=== PATIENT | female | born 1990 | race American Indian/Alaskan Native ===

== ENCOUNTER 2016-05-12 00:40 | Emergency (ER) | payer BC ==
--- NOTE | 2016-05-12 04:01 | Emergency Department Report ---
ED Shortness of Breath HPI - General Chief Complaint: Dyspnea/Respdistress Stated Complaint: CHEST PAIN Time Seen by Provider: 05/12/16 03:10 Source: patient Mode of arrival: Ambulatory Limitations: No Limitations - History of Present Illness Initial Comments: 26 y/o female complain of chest tightness for 30 minute on yesterday .pt denies any pain at present .pt state she has anxiety and asthma. Patient states she is currently out of her albuterol inhaler and will like a refill. Complaint: chest pain Onset/Timin -: days(s) Pain Scale: 2 Quality: aching Consistency: now resolved Improves With: nothing Worsens With: nothing Associated Symptoms: chest pain Treatments Prior to Arrival: none - Related Data Home Oxygen Therapy: No Previous Rx's Medication Instructions Recorded Last Taken Type Norgestimate-Ethinyl Estradiol 1 each PO DAILY #1 tablet 05/26/14 Unknown Rx [Ortho Tri-Cyclen Lo Tablet] ALBUTEROL Inhaler [ProAir HFA 2 puff IH QID PRN #1 inhalation 02/24/15 Unknown Rx Inhaler] Famotidine [Pepcid] 20 mg PO BID #60 tablet 02/24/15 Unknown Rx Ibuprofen [Motrin] 800 mg PO Q8HR PRN #45 tablet 02/24/15 Unknown Rx Ondansetron [Zofran Odt] 4 mg PO TID #9 tab.rapdis 02/24/15 Unknown Rx Ferrous Sulfate [Feosol 325 MG tab] 325 mg PO BID #60 tablet 11/07/15 Unknown Rx ALBUTEROL Inhaler [ProAir HFA 2 puff IH QID PRN #1 inhalation 05/12/16 Unknown Rx Inhaler] Allergies Allergy/AdvReac Type Severity Reaction Status Date / Time No Known Allergies Allergy Unverified 05/25/14 09:58 ED Review of Systems ROS: Stated complaint: CHEST PAIN Other details as noted in HPI Constitutional: denies: chills, fever Eyes: denies: eye pain, eye discharge, vision change ENT: denies: ear pain, throat pain Respiratory: denies: cough, shortness of breath, wheezing Cardiovascular: denies: chest pain, palpitations Endocrine: no symptoms reported Gastrointestinal: denies: abdominal pain, nausea, diarrhea Genitourinary: denies: urgency, dysuria, discharge Musculoskeletal: denies: back pain, joint swelling, arthralgia Skin: denies: rash, lesions Neurological: denies: headache, weakness, paresthesias Psychiatric: denies: anxiety, depression Hematological/Lymphatic: denies: easy bleeding, easy bruising ED Past Medical Hx - Past Medical History Previous Medical History?: Yes Hx Congestive Heart Failure: No Hx Diabetes: No Hx Asthma: Yes Hx COPD: No - Surgical History Past Surgical History?: Yes Additional Surgical History: c section x1 - Social History Smoking Status: Never Smoker Substance Use Type: None - Medications Home Medications: Home Medications Medication Instructions Recorded Confirmed Last Taken Type Norgestimate-Ethinyl Estradiol 1 each PO DAILY #1 tablet 05/26/14 Unknown Rx [Ortho Tri-Cyclen Lo Tablet] ALBUTEROL Inhaler [ProAir HFA 2 puff IH QID PRN #1 inhalation 02/24/15 Unknown Rx Inhaler] Famotidine [Pepcid] 20 mg PO BID #60 tablet 02/24/15 Unknown Rx Ibuprofen [Motrin] 800 mg PO Q8HR PRN #45 tablet 02/24/15 Unknown Rx Ondansetron [Zofran Odt] 4 mg PO TID #9 tab.rapdis 02/24/15 Unknown Rx Ferrous Sulfate [Feosol 325 MG tab] 325 mg PO BID #60 tablet 11/07/15 Unknown Rx ALBUTEROL Inhaler [ProAir HFA 2 puff IH QID PRN #1 inhalation 05/12/16 Unknown Rx Inhaler] ED Physical Exam - General Limitations: No Limitations General appearance: alert, in no apparent distress - Head Head exam: Present: atraumatic, normocephalic - Eye Eye exam: Present: normal appearance - ENT ENT exam: Present: mucous membranes moist - Neck Neck exam: Present: normal inspection - Respiratory Respiratory exam: Present: normal lung sounds bilaterally. Absent: respiratory distress, wheezes, rales, rhonchi - Cardiovascular Cardiovascular Exam: Present: regular rate, normal rhythm, normal heart sounds. Absent: bradycardia, tachycardia, irregular rhythm, systolic murmur, diastolic murmur, rubs, gallop - GI/Abdominal GI/Abdominal exam: Present: soft, normal bowel sounds - Extremities Exam Extremities exam: Present: normal inspection - Back Exam Back exam: Present: normal inspection - Neurological Exam Neurological exam: Present: alert, oriented X3 - Psychiatric Psychiatric exam: Present: normal affect, normal mood - Skin Skin exam: Present: warm, dry, intact, normal color. Absent: rash ED Course Vital Signs 05/12/16 01:26 Temperature 97.7 F Pulse Rate 63 Respiratory 18 Rate Blood Pressure 132/92 O2 Sat by Pulse 100 Oximetry ED Medical Decision Making - Medical Decision Making Asthma Patient had a EKG done for chest pain but refused to have lab work drawn. She states she need a refill for albuterol inhaler Critical care attestation.: If time is entered above; I have spent that time in minutes in the direct care of this critically ill patient, excluding procedure time. ED Disposition Clinical Impression: Asthma Qualifiers: Asthma severity: unspecified severity Asthma complication type: uncomplicated Qualified Code(s): J45.909 - Unspecified asthma, uncomplicated Disposition: DISCHARGED TO HOME OR SELFCARE Is pt being admited?: No Does the pt Need Aspirin: No Condition: Stable Instructions: Asthma (ED) Prescriptions: ALBUTEROL Inhaler [ProAir HFA Inhaler] 2 puff IH QID PRN #1 inhalation PRN Reason: Shortness Of Breath Referrals: PRIMARY CARE,MD [Primary Care Provider] - 3-[address] [facility] [Outside] - 3-5 Days Forms: Work/School Release Form(ED) Time of Disposition: 04:03
[2016-05-12 04:18] VITALS: BP 129/88
== END 2016-05-12 04:25 | disposition home or self-care (01) ==
LOC: ED 00:40
DX: J45.909 Unspecified asthma, uncomplicated (principal)
CPT/HCPCS: 93005; 93010; 99282

== ENCOUNTER 2016-06-11 00:54 | Emergency (ER) | payer BC ==
[2016-06-11 01:40] LABS: Basophils % (Auto) 0.3 % (0.0-1.8); Eosinophils % (Auto) 4.7 % (0.0-4.3); Hematocrit 36.5 % (30.3-42.9); Hemoglobin 11.8 gm/dl (10.1-14.3); Mean Corpuscular HGB Conc 32 % (30-34); Mean Corpuscular Hemoglobin 27 pg (28-32); Mean Corpuscular Volume 84 fl (79-97); Platelet Count 225 K/mm3 (140-440); Red Blood Count 4.35 M/mm3 (3.65-5.03); Red Cell Distribution Width 14.6 % (13.2-15.2); White Blood Count 7.9 K/mm3 (4.5-11.0)
[2016-06-11 02:36] LABS: Bilirubin,Urine NEG (Negative); Blood,Urine LG (Negative); Ketones,Urine NEG (Negative); Leukocyte Esterase,Urine NEG (Negative); Nitrite,Urine NEG (Negative); Urobilinogen,Urine < 2.0 mg/dL (<2.0)
[2016-06-11 02:38] LABS: RBC,Urine > 182.0 /HPF (0.0-6.0)
--- NOTE | 2016-06-11 11:15 | Emergency Department Report ---
HPI - General Chief Complaint: Abdominal Pain Time Seen by Provider: 06/11/16 10:20 - HPI HPI: Chief complaint: Vaginal bleeding HPI: Patient with a history of irregular periods states she's been having vaginal bleeding for the last 2 weeks. Patient states she is using approximately 6 pads a day. Patient has had dysfunctional uterine bleeding in the past requiring transfusion and came in to be checked and she started feeling lightheaded. Lower abdominal cramping pain Mode of arrival: private car Source: Patient Began: 2 weeks Duration: 2 weeks Context: See above Quality: Cramping Severity: 5 out of 10 Improved with: Nothing Worsened with: Nothing Associated signs and symptoms: See above ED Past Medical Hx - Past Medical History Previous Medical History?: Yes Hx Asthma: Yes - Surgical History Past Surgical History?: Yes Additional Surgical History: c section - Social History Smoking Status: Never Smoker - Medications Home Medications: Home Medications Medication Instructions Recorded Confirmed Last Taken Type Norgestimate-Ethinyl Estradiol 1 each PO DAILY #1 tablet 05/26/14 Unknown Rx [Ortho Tri-Cyclen Lo Tablet] ALBUTEROL Inhaler [ProAir HFA 2 puff IH QID PRN #1 inhalation 02/24/15 Unknown Rx Inhaler] Famotidine [Pepcid] 20 mg PO BID #60 tablet 02/24/15 Unknown Rx Ibuprofen [Motrin] 800 mg PO Q8HR PRN #45 tablet 02/24/15 Unknown Rx Ondansetron [Zofran Odt] 4 mg PO TID #9 tab.rapdis 02/24/15 Unknown Rx Ferrous Sulfate [Feosol 325 MG tab] 325 mg PO BID #60 tablet 11/07/15 Unknown Rx ALBUTEROL Inhaler [ProAir HFA 2 puff IH QID PRN #1 inhalation 05/12/16 Unknown Rx Inhaler] medroxyPROGESTERone ACETATE 10 mg PO QDAY #10 tablet 06/11/16 Unknown Rx [Provera] ED Review of Systems ROS: Stated complaint: VAGINAL BLEEDING/LIGHTHEADED Other details as noted in HPI ROS Constitutional: No fever ENT: No uri symptoms Cardiovascular: No chest pain Respiratory: No sob or cough GI: No nausea vomiting or diarrhea : No dysuria frequency or urgency, Skin: No rash Neuro: No focal weakness or numbness Psych: No depression Ted/lymph: No edema Physical Exam - Physical Exam Vital Signs: Vital Signs 06/11/16 06/11/16 01:00 06:51 Temperature 98.6 F 98.3 F Pulse Rate 74 61 Respiratory 16 Rate Blood Pressure 133/96 104/64 O2 Sat by Pulse 100 Oximetry Physical Exam: GENERAL: The patient is well-developed well-nourished . HEENT: Normocephalic. Atraumatic. Extraocular motions are intact. Patient has moist mucous membranes. NECK: Supple. No meningitic signs are noted. There is no adenopathy noted. CHEST/LUNGS: Clear to auscultation. There is no respiratory distress noted. HEART/CARDIOVASCULAR: Regular. There is no tachycardia. There is no gallop rub or murmur. ABDOMEN: Abdomen is soft, nontender. Patient has normal bowel sounds. There is no abdominal distention. : Moderate amount of menstrual bleeding. Minimal uterine tenderness and no cervical motion tenderness and no vaginal discharge SKIN: There is no rash. There is no edema. There is no diaphoresis. NEURO: The patient is awake, alert, and oriented. The patient is cooperative. The patient has no focal neurologic deficits. The patient has normal speech. MUSCULOSKELETAL: There is no tenderness or deformity. There is no limitation range of motion. There is no evidence of acute injury. ED Course Vital Signs 06/11/16 06/11/16 01:00 06:51 Temperature 98.6 F 98.3 F Pulse Rate 74 61 Respiratory 16 Rate Blood Pressure 133/96 104/64 O2 Sat by Pulse 100 Oximetry ED Medical Decision Making - Lab Data Result diagrams: 06/11/16 01:07 Laboratory Tests 06/11/16 02:08 Urine HCG, Qual Negative Critical care attestation.: If time is entered above; I have spent that time in minutes in the direct care of this critically ill patient, excluding procedure time. ED Disposition Clinical Impression: Dysfunctional uterine bleeding Disposition: DISCHARGED TO HOME OR SELFCARE Is pt being admited?: No Does the pt Need Aspirin: No Condition: Stable Instructions: Dysfunctional Uterine Bleeding (ED) Prescriptions: medroxyPROGESTERone ACETATE [Provera] 10 mg PO QDAY #10 tablet Referrals: RAFI CONTRERAS MD [Primary Care Provider] - 3-5 Days WILLIAM GARCIA MD [Staff Physician] - 7-10 days Time of Disposition: 11:10
[2016-06-11 11:30] VITALS: BP 120/78
== END 2016-06-11 11:30 | disposition home or self-care (01) ==
LOC: ED 00:54
DX: N93.8 Other specified abnormal uterine and vaginal bleeding (principal); J45.909 Unspecified asthma, uncomplicated; Z98.890 Other specified postprocedural states; Z79.899 Other long term (current) drug therapy
CPT/HCPCS: 36415; 81001; 81025; 85025; 99283

== ENCOUNTER 2016-10-30 21:02 | Emergency (ER) | payer BC ==
[2016-10-30 21:50] LABS: Basophils % (Auto) 0.7 % (0.0-1.8); Eosinophils % (Auto) 2.9 % (0.0-4.3); Hematocrit 34.1 % (30.3-42.9); Hemoglobin 10.8 gm/dl (10.1-14.3); Mean Corpuscular HGB Conc 32 % (30-34); Mean Corpuscular Volume 79 fl (79-97); Platelet Count 234 K/mm3 (140-440); Red Blood Count 4.34 M/mm3 (3.65-5.03); Red Cell Distribution Width 17.7 % (13.2-15.2); White Blood Count 10.2 K/mm3 (4.5-11.0)
[2016-10-30 21:51] LABS: Mean Corpuscular Hemoglobin 25 pg (28-32)
--- NOTE | 2016-10-31 02:02 | Emergency Department Report ---
ED Female HPI - General Chief complaint: Vaginal Bleeding Stated complaint: HEAVY BLEEDING AND BLOOD CLOTS Time Seen by Provider: 10/31/16 01:50 Source: patient Mode of arrival: Ambulatory Limitations: No Limitations - History of Present Illness Initial comments: 26-year-old female presents to the emergency department complaining of pelvic pain and vaginal bleeding. Patient states she has not had a menstrual period in 6 months. 2-1/2 weeks ago she began having pelvic cramping and vaginal bleeding. She reports some clots. Bleeding is worse during the morning time and slightly improves during the day. She reports occasional headaches. She denies chest pain, difficulty breathing, or lightheadedness. There are no other complaints. MD Complaint: vaginal bleeding, pelvic pain -: Gradual, week(s) (2.5) Location: suprapubic Radiation: non-radiating Severity: mild Severity scale (0 -10): 3 Quality: cramping Consistency: intermittent Improves with: none Worsens with: none Are you Now?: No Associated Symptoms: vaginal bleeding, headaches - Related Data Previous Rx's Medication Instructions Recorded Last Taken Type Norgestimate-Ethinyl Estradiol 1 each PO DAILY #1 tablet 05/26/14 Unknown Rx [Ortho Tri-Cyclen Lo Tablet] ALBUTEROL Inhaler [ProAir HFA 2 puff IH QID PRN #1 inhalation 02/24/15 Unknown Rx Inhaler] Famotidine [Pepcid] 20 mg PO BID #60 tablet 02/24/15 Unknown Rx Ibuprofen [Motrin] 800 mg PO Q8HR PRN #45 tablet 02/24/15 Unknown Rx Ondansetron [Zofran Odt] 4 mg PO TID #9 tab.rapdis 02/24/15 Unknown Rx Ferrous Sulfate [Feosol 325 MG tab] 325 mg PO BID #60 tablet 11/07/15 Unknown Rx ALBUTEROL Inhaler [ProAir HFA 2 puff IH QID PRN #1 inhalation 05/12/16 Unknown Rx Inhaler] medroxyPROGESTERone ACETATE 10 mg PO QDAY #10 tablet 10/31/16 Unknown Rx [Provera] Allergies Allergy/AdvReac Type Severity Reaction Status Date / Time No Known Allergies Allergy Unverified 05/25/14 09:58 ED Review of Systems ROS: Stated complaint: HEAVY BLEEDING AND BLOOD CLOTS Other details as noted in HPI Comment: All other systems reviewed and negative Gastrointestinal: abdominal pain Genitourinary: abnormal menses Neurological: headache ED Past Medical Hx - Past Medical History Previous Medical History?: Yes Hx Congestive Heart Failure: No Hx Diabetes: No Hx Asthma: Yes Hx COPD: No - Surgical History Past Surgical History?: Yes Additional Surgical History: c section - Family History Family history: no significant - Social History Smoking Status: Never Smoker Substance Use Type: None - Medications Home Medications: Home Medications Medication Instructions Recorded Confirmed Last Taken Type Norgestimate-Ethinyl Estradiol 1 each PO DAILY #1 tablet 05/26/14 Unknown Rx [Ortho Tri-Cyclen Lo Tablet] ALBUTEROL Inhaler [ProAir HFA 2 puff IH QID PRN #1 inhalation 02/24/15 Unknown Rx Inhaler] Famotidine [Pepcid] 20 mg PO BID #60 tablet 02/24/15 Unknown Rx Ibuprofen [Motrin] 800 mg PO Q8HR PRN #45 tablet 02/24/15 Unknown Rx Ondansetron [Zofran Odt] 4 mg PO TID #9 tab.rapdis 02/24/15 Unknown Rx Ferrous Sulfate [Feosol 325 MG tab] 325 mg PO BID #60 tablet 11/07/15 Unknown Rx ALBUTEROL Inhaler [ProAir HFA 2 puff IH QID PRN #1 inhalation 05/12/16 Unknown Rx Inhaler] medroxyPROGESTERone ACETATE 10 mg PO QDAY #10 tablet 10/31/16 Unknown Rx [Provera] ED Physical Exam - General Limitations: No Limitations General appearance: alert, in no apparent distress - Head Head exam: Present: atraumatic, normocephalic - Eye Eye exam: Present: normal appearance, PERRL, EOMI - ENT ENT exam: Present: normal exam, normal orophraynx, mucous membranes moist - Neck Neck exam: Present: normal inspection, full ROM. Absent: tenderness - Respiratory Respiratory exam: Present: normal lung sounds bilaterally. Absent: respiratory distress - Cardiovascular Cardiovascular Exam: Present: regular rate, normal rhythm, normal heart sounds - GI/Abdominal GI/Abdominal exam: Present: soft, tenderness (mild suprapubic tenderness to palpation), normal bowel sounds. Absent: distended, guarding, rebound - Extremities Exam Extremities exam: Present: normal inspection, full ROM. Absent: tenderness - Back Exam Back exam: Present: normal inspection, full ROM. Absent: tenderness - Neurological Exam Neurological exam: Present: alert, oriented X3. Absent: motor sensory deficit - Skin Skin exam: Present: warm, dry, intact ED Course Vital Signs 10/30/16 10/31/16 10/31/16 21:15 01:39 01:50 Temperature 98.2 F Pulse Rate 106 H 92 H Respiratory 20 18 18 Rate Blood Pressure 114/77 Blood Pressure 108/78 [Right] O2 Sat by Pulse 97 Oximetry ED Medical Decision Making - Lab Data Result diagrams: 10/30/16 21:27 - Radiology Data Radiology results: report reviewed Pelvic ultrasound reveals a left ovarian cyst. There are no other acute abnormalities. - Medical Decision Making Lab and imaging results reviewed and discussed with the patient. 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 - Differential Diagnosis abnormal uterine bleeding, fibroids, anemia Critical care attestation.: If time is entered above; I have spent that time in minutes in the direct care of this critically ill patient, excluding procedure time. ED Disposition Clinical Impression: Abnormal uterine bleeding Disposition: -01 TO HOME OR SELFCARE Is pt being admited?: No Condition: Stable Instructions: Menorrhagia (ED) Prescriptions: medroxyPROGESTERone ACETATE [Provera] 10 mg PO QDAY #10 tablet Referrals: SHEILA CHAVEZ MD [Staff Physician] - 3-5 Days Time of Disposition: 04:43
[2016-10-31 02:29] VITALS: BP 108/78
[2016-10-31 02:29] LABS: Bilirubin,Urine Negative (Negative); Ketones,Urine Negative (Negative)
[2016-10-31 02:30] LABS: Blood,Urine Large (Negative); Leukocyte Esterase,Urine Negative (Negative); Nitrite,Urine Negative (Negative)
--- NOTE | 2016-10-31 03:48 | Ultrasound Report ---
FINAL REPORT PROCEDURE: US PELVIS TRANSABDOMINAL TECHNIQUE: Real-time transabdominal sonography in multiple planes of the pelvis was performed with image documentation. This examination was performed without Doppler. Vascular abnormalities, including ovarian torsion, will not be detectable without Doppler evaluation. HISTORY: lower abd pain with vaginal bleeding COMPARISON: No prior studies are available for comparison. FINDINGS: UTERUS Size: 10.9 x 4.7 x 6.3 cm. Endometrial thickness: 11.7 mm. Orientation: anteverted. Cervix: Normal. Fibroids/masses: None. RIGHT Ovary: 3.7 x 2.3 x 1.9 cm. Appearance: Normal. LEFT Ovary: 4.6 x 2.6 x 2.7 cm. Appearance: There is cyst measuring 2.9 centimeters.. Pelvic fluid: None. Other: None. IMPRESSION: Left ovarian cyst. Otherwise unremarkable..
--- NOTE | 2016-10-31 03:48 | Ultrasound Report ---
FINAL REPORT PROCEDURE: US TRANSVAGINAL TECHNIQUE: Real-time transvaginal sonography in multiple planes of the pelvis was performed with image documentation. This examination was performed without Doppler. Vascular abnormalities, including ovarian torsion, will not be detectable without Doppler evaluation. CPT 63790 HISTORY: lower abd pain with vaginal bleeding COMPARISON: No prior studies are available for comparison. FINDINGS: UTERUS Size: 10.9 x 4.7 x 6.3 cm. Endometrial thickness: 11.7 mm. Orientation: anteverted. Cervix: Normal. Fibroids/masses: None. RIGHT Ovary: 3.7 x 2.3 x 1.9 cm. Appearance: Normal. LEFT Ovary: 4.6 x 2.6 x 2.7 cm. Appearance: There is cyst measuring 2.9 centimeters.. Pelvic fluid: None. Other: None. IMPRESSION: Left ovarian cyst. Otherwise unremarkable..
== END 2016-10-31 05:11 | disposition home or self-care (01) ==
LOC: ED 21:02
DX: N93.9 Abnormal uterine and vaginal bleeding, unspecified (principal); J45.909 Unspecified asthma, uncomplicated
CPT/HCPCS: 36415; 76830; 76856; 81001; 84702; 85025; 86850; 86900; 86901; 99284

== ENCOUNTER 2017-04-17 10:03 | Emergency (ER) | payer BC ==
[2017-04-17 12:38] LABS: Basophils % (Auto) 0.3 % (0.0-1.8); Eosinophils # (Auto) 0.4 K/mm3 (0.0-0.4); Eosinophils % (Auto) 5.5 % (0.0-4.3); Hemoglobin 10.9 gm/dl (10.1-14.3); Lymphocytes # (Auto) 2.6 K/mm3 (1.2-5.4); Lymphocytes % (Auto) 39.6 % (13.4-35.0); Mean Corpuscular HGB Conc 31 % (30-34); Mean Corpuscular Volume 76 fl (79-97); Monocytes # (Auto) 0.5 K/mm3 (0.0-0.8); Monocytes % (Auto) 7.7 % (0.0-7.3); Platelet Count 231 K/mm3 (140-440)
[2017-04-17 12:41] LABS: Mean Corpuscular Hemoglobin 24 pg (28-32); Red Cell Distribution Width 20.4 % (13.2-15.2)
[2017-04-17 13:44] LABS: Bilirubin,Urine NEG (Negative); Blood,Urine LG (Negative); Color,Urine Red (Yellow); Nitrite,Urine NEG (Negative); Urobilinogen,Urine < 2.0 mg/dL (<2.0)
[2017-04-17 13:46] LABS: RBC,Urine > 182.0 /HPF (0.0-6.0); WBC,Urine < 1.0 /HPF (0.0-6.0)
--- NOTE | 2017-04-18 04:37 | Emergency Department Report ---
ED Female HPI - General Chief complaint: Vaginal Bleeding Stated complaint: MENSTRAL CRAMPING Time Seen by Provider: 04/18/17 04:22 Source: patient Mode of arrival: Ambulatory Limitations: No Limitations - History of Present Illness Initial comments: 27 YO FEMALE WITH RECURRENT VAGINAL BLEEDING WHICH BEGAN 2.5 WEEKS AGO. SHE HAS HAD THIS PROBLEM FOR 3 YRS AND HAS RECEIVED BLOOD TRANSFUSIONS AND HAS NOT FOLLOW UP WITH A DOCTOR. SHE HAS HAD ULTRASOUNDS DONE AND BEEN ON OCP FOR THIS WITH EACH OCCURRENCE OF UTERINE BLEEDING. LAST us SHOWED OVARIAN CYST BUT REPEAT US AT [facility] WAS NEGATIVE FOR OVARIAN CYST. MD Complaint: vaginal bleeding -: Gradual, week(s) (2.5) Radiation: suprapubic Severity: mild Quality: cramping Consistency: other (SEE ABOVE) Improves with: none Worsens with: none Are you Now?: No Associated Symptoms: denies: vaginal discharge, nausea/vomiting, fever/chills, headaches, loss of appetite - Related Data Previous Rx's Medication Instructions Recorded Last Taken Type Norgestimate-Ethinyl Estradiol 1 each PO DAILY #1 tablet 05/26/14 Unknown Rx [Ortho Tri-Cyclen Lo Tablet] ALBUTEROL Inhaler [ProAir HFA 2 puff IH QID PRN #1 inhalation 02/24/15 Unknown Rx Inhaler] Famotidine [Pepcid] 20 mg PO BID #60 tablet 02/24/15 Unknown Rx Ibuprofen [Motrin] 800 mg PO Q8HR PRN #45 tablet 02/24/15 Unknown Rx Ondansetron [Zofran Odt] 4 mg PO TID #9 tab.rapdis 02/24/15 Unknown Rx Ferrous Sulfate [Feosol 325 MG tab] 325 mg PO BID #60 tablet 11/07/15 Unknown Rx ALBUTEROL Inhaler [ProAir HFA 2 puff IH QID PRN #1 inhalation 05/12/16 Unknown Rx Inhaler] Naproxen [Naprosyn] 500 mg PO BID #30 tablet 04/18/17 Unknown Rx medroxyPROGESTERone ACETATE 10 mg PO QDAY #10 tablet 04/18/17 Unknown Rx [Provera] Allergies Allergy/AdvReac Type Severity Reaction Status Date / Time No Known Allergies Allergy Verified 04/17/17 12:04 ED Review of Systems ROS: Stated complaint: MENSTRAL CRAMPING Other details as noted in HPI Constitutional: denies: chills, fever Eyes: denies: eye pain, eye discharge, vision change ENT: denies: ear pain, throat pain Respiratory: denies: cough, shortness of breath, wheezing Cardiovascular: denies: chest pain, palpitations Endocrine: no symptoms reported Gastrointestinal: abdominal pain (MILD CRAMPING). denies: nausea, vomiting, diarrhea Genitourinary: denies: urgency, dysuria, discharge Musculoskeletal: denies: back pain, joint swelling, arthralgia Skin: denies: rash, lesions Neurological: denies: headache, weakness, paresthesias Psychiatric: denies: anxiety, depression Hematological/Lymphatic: denies: easy bleeding, easy bruising ED Past Medical Hx - Past Medical History Previous Medical History?: Yes Hx Congestive Heart Failure: No Hx Diabetes: No Hx Asthma: Yes Hx COPD: No Additional medical history: Anemia from heavy menstral cycles, MENORRHAGIA - Surgical History Past Surgical History?: Yes Additional Surgical History: c section - Social History Smoking Status: Never Smoker Substance Use Type: None - Medications Home Medications: Home Medications Medication Instructions Recorded Confirmed Last Taken Type Norgestimate-Ethinyl Estradiol 1 each PO DAILY #1 tablet 05/26/14 Unknown Rx [Ortho Tri-Cyclen Lo Tablet] ALBUTEROL Inhaler [ProAir HFA 2 puff IH QID PRN #1 inhalation 02/24/15 Unknown Rx Inhaler] Famotidine [Pepcid] 20 mg PO BID #60 tablet 02/24/15 Unknown Rx Ibuprofen [Motrin] 800 mg PO Q8HR PRN #45 tablet 02/24/15 Unknown Rx Ondansetron [Zofran Odt] 4 mg PO TID #9 tab.rapdis 02/24/15 Unknown Rx Ferrous Sulfate [Feosol 325 MG tab] 325 mg PO BID #60 tablet 11/07/15 Unknown Rx ALBUTEROL Inhaler [ProAir HFA 2 puff IH QID PRN #1 inhalation 05/12/16 Unknown Rx Inhaler] Naproxen [Naprosyn] 500 mg PO BID #30 tablet 04/18/17 Unknown Rx medroxyPROGESTERone ACETATE 10 mg PO QDAY #10 tablet 04/18/17 Unknown Rx [Provera] ED Physical Exam - General Limitations: No Limitations General appearance: alert, in no apparent distress - Head Head exam: Present: atraumatic, normocephalic - Eye Eye exam: Present: normal appearance, EOMI - ENT ENT exam: Present: mucous membranes moist - Neck Neck exam: Present: normal inspection, full ROM - Respiratory Respiratory exam: Present: normal lung sounds bilaterally. Absent: respiratory distress - Cardiovascular Cardiovascular Exam: Present: regular rate, normal rhythm. Absent: systolic murmur, diastolic murmur, rubs, gallop - GI/Abdominal GI/Abdominal exam: Present: soft, tenderness (MILD SUPRAPUBIC), normal bowel sounds. Absent: guarding - Rectal Rectal exam: Present: deferred - External exam: Present: normal external exam, bleeding (BRIGHT RED) Speculum exam: Present: vaginal bleeding, other (MEDIUM AMOUTN OF MENSTRUAL BLEEDING, NOT A HEMORRHAGE). Absent: erythema, vaginal discharge, cervical discharge - Extremities Exam Extremities exam: Present: normal inspection, full ROM - Back Exam Back exam: Present: normal inspection, full ROM - Neurological Exam Neurological exam: Present: alert, oriented X3, CN II-XII intact - Psychiatric Psychiatric exam: Present: normal affect, normal mood - Skin Skin exam: Present: warm, dry, intact, normal color. Absent: rash ED Course Vital Signs 04/17/17 04/18/17 12:04 02:34 Temperature 97.2 F L 98.3 F Pulse Rate 96 H 80 Respiratory 18 14 Rate Blood Pressure 132/75 130/71 O2 Sat by Pulse 96 100 Oximetry ED Medical Decision Making - Lab Data Result diagrams: 04/17/17 12:12 Critical care attestation.: If time is entered above; I have spent that time in minutes in the direct care of this critically ill patient, excluding procedure time. ED Disposition Clinical Impression: Menorrhagia Qualifiers: Menorrahagia type: with irregular cycle Qualified Code(s): N92.1 - Excessive and frequent menstruation with irregular cycle Disposition: DC-01 TO HOME OR SELFCARE Is pt being admited?: No Does the pt Need Aspirin: No Condition: Stable Instructions: Dysfunctional Uterine Bleeding (ED) Additional Instructions: PLEASE FOLLOW UP WITH YOUR REGULAR DOCTOR AND AND SUPERINTENDENT QUARRY DOCTOR IN TWO DAYS. RETURN TO THE ER FOR INCREASED BLEEDING OR FOR ANY CONCERNS PLEASE CALL DR SUAZO FOR A FOLLOW UP APPOINTMENT TODAY; [phone] Prescriptions: medroxyPROGESTERone ACETATE [Provera] 10 mg PO QDAY #10 tablet Naproxen [Naprosyn] 500 mg PO BID #30 tablet Referrals: PRIMARY CAREMD [Primary Care Provider] - 3-5 Days SUE MORAN MD [Referring] - 3-5 Days [facility] [Outside] - 3-5 Days Time of Disposition: 05:09
[2017-04-18] MEDS ORDERED: NACL 0.9% 1000 ML 1,000 ML IV ONE (05:16)
[2017-04-18] MEDS ORDERED: NACL 0.9% 1000 ML 1,000 ML ONE (05:19)
[2017-04-18 08:04] VITALS: BP 116/66
== END 2017-04-18 06:45 | disposition home or self-care (01) ==
LOC: ED 10:03
DX: N92.1 Excessive and frequent menstruation with irregular cycle (principal); J45.909 Unspecified asthma, uncomplicated; D64.9 Anemia, unspecified
CPT/HCPCS: 36415; 81001; 84702; 85025; 86850; 86900; 86901; 87210; 96360; 99284; J7030

== ENCOUNTER 2019-07-20 17:33 | Emergency (ER) | payer BC, OTHER ==
[2019-07-20] MEDS ORDERED: IPRATROPIUM/ALBUTEROL SULFATE 3 ML AMPUL.NEB IH ONE ×2 (19:49→22:01)
[2019-07-20 20:15] LABS: Basophils # (Auto) 0.1 K/mm3 (0.0-0.1); Basophils % (Auto) 0.8 % (0.0-1.8); Eosinophils # (Auto) 0.3 K/mm3 (0.0-0.4); Eosinophils % (Auto) 3.1 % (0.0-4.3); Lymphocytes # (Auto) 3.1 K/mm3 (1.2-5.4); Lymphocytes % (Auto) 34.8 % (13.4-35.0); Mean Corpuscular HGB Conc 30 % (30-34); Monocytes # (Auto) 0.7 K/mm3 (0.0-0.8); Monocytes % (Auto) 7.6 % (0.0-7.3); Platelet Count 277 K/mm3 (140-440); Red Blood Count 4.35 M/mm3 (3.65-5.03); Red Cell Distribution Width 18.6 % (13.2-15.2)
[2019-07-20 20:17] LABS: Hematocrit 30.3 % (30.3-42.9); Mean Corpuscular Volume 70 fl (79-97)
[2019-07-20 20:38] LABS: Alanine Aminotransferase 15 units/L (7-56); Albumin 3.9 g/dL (3.9-5); BUN/Creatinine Ratio 16; Blood Urea Nitrogen 11 mg/dL (7-17); Calcium 8.9 mg/dL (8.4-10.2); Hemolysis Index 4
--- NOTE | 2019-07-20 21:57 | XRay Report ---
CHEST 1 VIEW INDICATION / CLINICAL INFORMATION: Cough. COMPARISON: None available. FINDINGS: SUPPORT DEVICES: None. HEART / MEDIASTINUM: No significant abnormality. LUNGS / PLEURA: No significant pulmonary or pleural abnormality. No pneumothorax. ADDITIONAL FINDINGS: No significant additional findings. IMPRESSION: 1. No acute findings. Signer Name: Rosalio Parson MD Signed: 07/20/2019 9:53 PM Workstation Name: [id number]
[2019-07-20] MEDS ORDERED: ALBUTEROL 2.5 MG/3 ML NEBU IH ONE (22:01)
[2019-07-20 23:27] LABS: Bacteria,Urine 1+ /HPF (Negative); Bilirubin,Urine NEG (Negative); Blood,Urine NEG (Negative); Color,Urine Straw (Yellow); Mucus,Urine FEW /HPF; Protein,Urine <15 mg/dL mg/dL (Negative); Urobilinogen,Urine < 2.0 mg/dL (<2.0); WBC,Urine < 1.0 /HPF (0.0-6.0)
--- NOTE | 2019-07-21 00:28 | Emergency Department Report ---
- General Chief Complaint: Upper Respiratory Infection Stated Complaint: SOB/CHEST PAIN/NECK PAIN Source: patient Mode of arrival: Ambulatory Limitations: No Limitations - History of Present Illness Initial Comments: Patient is a 29-year-old -H[place] female with a history of asthma who presented to the ED with complaint of acute onset persistent nasal and sinus congestion for the last 2 days. Patient also states that her symptoms have worsened in the last 24 hours despite using her albuterol inhaler and nebulizers. Patient however states that she ran out of albuterol nebulizers 24 hours ago. Patient states that she has not been closer to people with similar symptoms, and that she has no travel. Patient denies dizziness, syncope, chest pain, abdominal pain, nausea, vomiting, fever, chills, sore throat, headache, back pain or change in vision and syncope. MD Complaint: cough, rhinorrhea, nasal congestion, sinus pain, other (wheezing) -: Sudden, days(s) (2) Severity scale (0 -10): 4 Quality: sharp, aching Consistency: constant Improves With: nothing Worsens With: nothing Associated Symptoms: denies other symptoms, myalgias, headache, rhinorrhea, nasal congestion, cough, shortness of breath. denies: fever, chills, diaphoresis, sore throat, stiff neck, chest pain, abdominal pain, nausea, vomiting, diarrhea, dysuria, rash, confusion, right sweats, weight loss, hoarseness, ear pain Treatments Prior to Arrival: none - Related Data Previous Rx's Medication Instructions Recorded Last Taken Type Norgestimate-Ethinyl Estradiol 1 each PO DAILY #1 tablet 05/26/14 Unknown Rx [Ortho Tri-Cyclen Lo Tablet] Albuterol INH(or & Nicu Only) 2 puff IH QID PRN #1 inhalation 02/24/15 Unknown Rx [ProAir HFA Inhaler] Famotidine [Pepcid] 20 mg PO BID #60 tablet 02/24/15 Unknown Rx Ondansetron [Zofran Odt] 4 mg PO TID #9 tab.rapdis 02/24/15 Unknown Rx Ferrous Sulfate [Feosol 325 MG tab] 325 mg PO BID #60 tablet 11/07/15 Unknown Rx Albuterol INH(or & Nicu Only) 2 puff IH QID PRN #1 inhalation 05/12/16 Unknown Rx [ProAir HFA Inhaler] Naproxen [Naprosyn] 500 mg PO BID #30 tablet 04/18/17 Unknown Rx medroxyPROGESTERone ACETATE 10 mg PO QDAY #10 tablet 04/18/17 Unknown Rx [Provera] Baclofen [Lioresal] 10 mg PO TID #15 tab 03/30/18 Unknown Rx Ibuprofen [Motrin 800 MG tab] 800 mg PO Q8HR PRN #21 tablet 03/30/18 Unknown Rx Albuterol Sulfate [Albuterol 0.63% 3 ml IH Q6H PRN #75 ml 07/21/19 Unknown Rx NEBS] Azithromycin [Zithromax Z-RADHIKA] 250 mg PO DAILY #6 tablet 07/21/19 Unknown Rx Benzonatate [Tessalon Perles] 100 mg PO Q8HR #30 capsule 07/21/19 Unknown Rx Cetirizine HCl [Zyrtec 10mg tab] 10 mg PO DAILY #30 tablet 07/21/19 Unknown Rx methylPREDNISolone [Medrol 4MG 4 mg PO DAILY #21 tab.ds.pk 07/21/19 Unknown Rx DOSEPAK (21 tabs)] Allergies Allergy/AdvReac Type Severity Reaction Status Date / Time No Known Allergies Allergy Verified 03/30/18 16:41 ED Review of Systems ROS: Stated complaint: SOB/CHEST PAIN/NECK PAIN Other details as noted in HPI Constitutional: denies: chills, fever Eyes: denies: eye pain, eye discharge, vision change ENT: congestion. denies: ear pain, throat pain Respiratory: cough, shortness of breath, wheezing Cardiovascular: denies: chest pain, palpitations Endocrine: no symptoms reported Gastrointestinal: denies: abdominal pain, nausea, vomiting, diarrhea Genitourinary: denies: urgency, dysuria, frequency, hematuria, discharge, abnormal menses, dyspareunia Musculoskeletal: denies: back pain, joint swelling, arthralgia Skin: denies: rash, lesions Neurological: denies: headache, weakness, paresthesias Psychiatric: denies: anxiety, depression Hematological/Lymphatic: denies: easy bleeding, easy bruising ED Past Medical Hx - Past Medical History Previous Medical History?: Yes Hx Congestive Heart Failure: No Hx Diabetes: No Hx Asthma: Yes Hx COPD: No Additional medical history: Anemia from heavy menstral cycles, MENORRHAGIA - Surgical History Past Surgical History?: Yes Additional Surgical History: c section - Social History Smoking Status: Never Smoker Substance Use Type: None - Medications Home Medications: Home Medications Medication Instructions Recorded Confirmed Last Taken Type Norgestimate-Ethinyl Estradiol 1 each PO DAILY #1 tablet 05/26/14 Unknown Rx [Ortho Tri-Cyclen Lo Tablet] Albuterol INH(or & Nicu Only) 2 puff IH QID PRN #1 inhalation 02/24/15 Unknown Rx [ProAir HFA Inhaler] Famotidine [Pepcid] 20 mg PO BID #60 tablet 02/24/15 Unknown Rx Ondansetron [Zofran Odt] 4 mg PO TID #9 tab.rapdis 02/24/15 Unknown Rx Ferrous Sulfate [Feosol 325 MG tab] 325 mg PO BID #60 tablet 11/07/15 Unknown Rx Albuterol INH(or & Nicu Only) 2 puff IH QID PRN #1 inhalation 05/12/16 Unknown Rx [ProAir HFA Inhaler] Naproxen [Naprosyn] 500 mg PO BID #30 tablet 04/18/17 Unknown Rx medroxyPROGESTERone ACETATE 10 mg PO QDAY #10 tablet 04/18/17 Unknown Rx [Provera] Baclofen [Lioresal] 10 mg PO TID #15 tab 03/30/18 Unknown Rx Ibuprofen [Motrin 800 MG tab] 800 mg PO Q8HR PRN #21 tablet 03/30/18 Unknown Rx Albuterol Sulfate [Albuterol 0.63% 3 ml IH Q6H PRN #75 ml 07/21/19 Unknown Rx NEBS] Azithromycin [Zithromax Z-RADHIKA] 250 mg PO DAILY #6 tablet 07/21/19 Unknown Rx Benzonatate [Tessalon Perles] 100 mg PO Q8HR #30 capsule 07/21/19 Unknown Rx Cetirizine HCl [Zyrtec 10mg tab] 10 mg PO DAILY #30 tablet 07/21/19 Unknown Rx methylPREDNISolone [Medrol 4MG 4 mg PO DAILY #21 tab.ds.pk 07/21/19 Unknown Rx DOSEPAK (21 tabs)] ED Physical Exam - General Limitations: No Limitations General appearance: alert, in no apparent distress - Head Head exam: Present: atraumatic, normocephalic, normal inspection - Eye Eye exam: Present: normal appearance, PERRL, EOMI Pupils: Present: normal accommodation - ENT ENT exam: Present: normal orophraynx, mucous membranes moist, TM's normal bilaterally, normal external ear exam, other (Grossly congested nasal passages) - Neck Neck exam: Present: normal inspection, full ROM. Absent: tenderness - Respiratory Respiratory exam: Present: normal lung sounds bilaterally. Absent: respiratory distress, wheezes, rales, rhonchi, chest wall tenderness, accessory muscle use, prolonged expiratory - Cardiovascular Cardiovascular Exam: Present: regular rate, normal rhythm, normal heart sounds. Absent: bradycardia, tachycardia, irregular rhythm, systolic murmur, diastolic murmur, rubs, gallop - GI/Abdominal GI/Abdominal exam: Present: soft, normal bowel sounds. Absent: tenderness, guarding, rebound, hyperactive bowel sounds, hypoactive bowel sounds, organomegaly - Extremities Exam Extremities exam: Present: normal inspection, full ROM, normal capillary refill - Back Exam Back exam: Present: normal inspection, full ROM. Absent: tenderness, CVA tender ness (R), CVA tenderness (L), muscle spasm, paraspinal tenderness - Neurological Exam Neurological exam: Present: alert, oriented X3, CN II-XII intact, normal gait, reflexes normal - Psychiatric Psychiatric exam: Present: normal affect, normal mood - Skin Skin exam: Present: warm, dry, intact, normal color. Absent: rash ED Course Vital Signs 07/20/19 17:47 Temperature 98.0 F Pulse Rate 65 Respiratory 16 Rate Blood Pressure 136/86 [Right] O2 Sat by Pulse 100 Oximetry ED Medical Decision Making - Lab Data Result diagrams: 07/20/19 20:02 07/20/19 20:02 - Radiology Data Radiology results: report reviewed, image reviewed Chest x-ray shows no acute cardiopulmonary abnormalities or pneumonitis. - Medical Decision Making This is a 29-year-old -[place] female with a history of asthma who presented to the ED with complaint of acute onset persistent nasal and sinus congestion for the last 2 days. Patient also states that her symptoms have worsened in the last 24 hours despite using her albuterol inhaler and nebulizers. Patient however states that she ran out of albuterol nebulizers 24 hours ago. Patient states that she has not been closer to people with similar symptoms, and that she has no travel. In the ED, patient is alert and oriented x3 and is not in any distress. Lab test results were reviewed and are all nonactionable. Chest x-ray shows no acute cardiopulmonary abnormalities or pneumonitis. Patient received DuoNeb treatment in the ED and also received Solu-Medrol. On reevaluation, patient's wheezing resolved and patient was di scharged home on medications and had a refill on her albuterol nebulizer as well. Patient was advised to follow-up with her primary care physician in 5 to 7 days for reevaluation or return to the ED immediately if her symptoms get worse. - Differential Diagnosis Pneumonia; URI; Asthma exacerbation; bronchitis Critical care attestation.: If time is entered above; I have spent that time in minutes in the direct care of this critically ill patient, excluding procedure time. ED Disposition Clinical Impression: Acute upper respiratory infection, Acute asthmatic bronchitis Asthma Qualifiers: Asthma severity: mild Asthma persistence: unspecified Asthma complication type: unspecified Qualified Code(s): J45.909 - Unspecified asthma, uncomplicated Disposition: TO HOME OR SELFCARE Is pt being admited?: No Does the pt Need Aspirin: No Condition: Stable Instructions: Asthma (ED), Acute Bronchitis (ED), Reactive Airways Disease (ED), Upper Respiratory Infection (ED) Additional Instructions: Take medication with food, drink plenty of fluids and follow-up with your primary care physician in 7 to 10 days for reevaluation. Return to the ED immediately if symptoms get worse. Prescriptions: Albuterol Sulfate [Albuterol 0.63% NEBS] 3 ml IH Q6H PRN #75 ml PRN Reason: Wheezing methylPREDNISolone [Medrol 4MG DOSEPAK (21 tabs)] 4 mg PO DAILY #21 tab.ds.pk Benzonatate [Tessalon Perles] 100 mg PO Q8HR #30 capsule Azithromycin [Zithromax Z-RADHIKA] 250 mg PO DAILY #6 tablet Cetirizine HCl [Zyrtec 10mg tab] 10 mg PO DAILY #30 tablet Referrals: DIMAS RAMACHANDRAN MD [Staff Physician] - 3-5 Days Forms: Work/School Release Form(ED) Time of Disposition: 00:32 Print Language: TAJIK
[2019-07-21 01:38] VITALS: BP 139/74
== END 2019-07-21 01:00 | disposition home or self-care (01) ==
LOC: ED 17:33
DX: J06.9 Acute upper respiratory infection, unspecified (principal); J45.909 Unspecified asthma, uncomplicated; D64.9 Anemia, unspecified; Z98.890 Other specified postprocedural states; Z79.899 Other long term (current) drug therapy
CPT/HCPCS: 36415; 71046; 80053; 81001; 84702; 85025; 94640; 94644